=== PATIENT | female | born 1995 | race Caucasian/White ===

== ENCOUNTER → 2017-11-17 | Outpatient (CLI) | payer OTHER | END | disposition home or self-care (01) | LOC: PPH VACUNA 11:18 | DX: Z23 Encounter for immunization (principal) ==

== ENCOUNTER 2018-04-20 21:50 | Outpatient (CLI) | payer OTHER ==
[~2018-04-20 21:50] MED LIST: DUI500; PRENATAL TABLE1 EAC1
== END 2018-04-21 14:28 ==
LOC: OBS/DEL 21:50
DX: O60.03 Preterm labor without delivery, third trimester (principal); Z34.03 Encounter for supervision of normal first pregnancy, third trimester

== ENCOUNTER 2018-05-21 09:55 | Inpatient (IN) | payer OTHER ==
[~2018-05-21] VITALS: Ht 160 cm; Wt 70.8 kg
[2018-05-21] MEDS ORDERED: PRENATAL TABLE1 EACH PO (10:17)
== END 2018-05-24 10:55 | DRG 765 ==
LOC: LDR 09:55 → OB/GYN 09:55 → O/R 09:55 → OB/GYN 16:36
PROVIDERS: Obstetrics & Gynecology
PROC: 0UB20ZZ Excision of Bilateral Ovaries, Open Approach (ICD-10-PCS; 2018-05-21)
PROC: 4A1HXCZ Monitoring of Products of Conception, Cardiac Rate, External Approach (ICD-10-PCS; 2018-05-21)
PROC: 4A033R1 Measurement of Arterial Saturation, Peripheral, Percutaneous Approach (ICD-10-PCS; 2018-05-21)
PROC: 10D00Z1 Extraction of Products of Conception, Low, Open Approach (ICD-10-PCS; principal; 2018-05-21 12:00)
DX: O32.1XX0 Maternal care for breech presentation, not applicable or unspecified (principal); O99.113 Other diseases of the blood and blood-forming organs and certain disorders involving the immune mechanism complicating pregnancy, third trimester; D68.0 Von Willebrand disease; O34.83 Maternal care for other abnormalities of pelvic organs, third trimester; Z3A.38 38 weeks gestation of pregnancy; D27.1 Benign neoplasm of left ovary; Z37.0 Single live birth; D27.0 Benign neoplasm of right ovary